=== PATIENT | male | born 1950 | race Caucasian/White ===

== ENCOUNTER 2025-01-29 15:24 | Inpatient (IN) | payer MEDICARE, MEDICAID ==
[~2025-01-29] VITALS: Ht 167.6 cm; Wt 65.8 kg
[~2025-01-29 15:24] MED LIST: OLAN10TA74 PO; TAMS0.4C94 PO
[2025-01-29 16:18] LABS: PLATELET COUNT (AUTO) 248 K/uL (150-450); RED BLOOD CELL COUNT(AUTO) 3.63 MIL/uL (4.50-5.90); RED CELL DISTRIBUTION WIDTH 16.1 % (11.5-14.5); WHITE BLOOD COUNT (AUTO) 7.3 K/uL (4.5-11.0)
[2025-01-29 16:23] LABS: CALCIUM, TOTAL 8.9 mg/dL (8.8-10.5); CREATININE 0.66 mg/dL (0.60-1.30); GLOMERULAR FILTR. RATE CALC > 60 mL/min (>60); GLUCOSE,RANDOM 95 mg/dL (70-110); SODIUM SERUM 139 mmol/L (136-145); UREA NITROGEN, BLOOD 29 mg/dL (7-18)
[2025-01-29 17:45] LABS: COVID AG,FIA SOURCE NASAL SWAB
[2025-01-29 18:10] LABS: SARS-COV2 (COVID) ANTIGEN,FIA Negative (Negative)
[2025-01-29 18:36] LABS: GLUCOMETER DEV NAME(LOC) ER.7; GLUCOSE,POINT OF CARE 86 MG/DL (70-110)
[2025-01-29] MEDS ORDERED: ZOLPIDEM TARTRATE 10 MG TABLET PO PRN (20:30)
[2025-01-29 23:52] LABS: APPEARANCE,URINE CLEAR (CLEAR); GLUCOSE, URINE (UA) NEGATIVE (NEGATIVE); LEUKOCYTE ESTERASE ,URINE NEGATIVE (NEGATIVE); NITRATE,URINE NEGATIVE (NEGATIVE); OCCULT BLOOD,URINE NEGATIVE (NEGATIVE); PH,URINE DRUG SCREEN 6.5 (5.0-8.0); SPECIFIC GRAVITIY, URINE 1.012 (1.003-1.030)
[2025-01-30 00:07] LABS: ALCOHOL, URINE DRUG SCREEN NEGATIVE (NEGATIVE); AMPHET/METH SCREEN,URINE NEGATIVE (NEGATIVE); BARBITURATE SCREEN, URINE NEGATIVE (NEGATIVE); CANNABINOID SCREEN,URINE NEGATIVE (NEGATIVE); COCAINE SCREEN,URINE NEGATIVE (NEGATIVE); METHADONE SCREEN, URINE NEGATIVE (NEGATIVE)
[2025-01-30 05:13] LABS: PLATELET COUNT (AUTO) 216 K/uL (150-450); RED BLOOD CELL COUNT(AUTO) 3.54 MIL/uL (4.50-5.90); RED CELL DISTRIBUTION WIDTH 16.0 % (11.5-14.5); WHITE BLOOD COUNT (AUTO) 6.4 K/uL (4.5-11.0)
[2025-01-30 05:33] LABS: ASPARTATE AMINOTRANSFERASE 18 U/L (15-37); CALCIUM, TOTAL 8.3 mg/dL (8.8-10.5); CHOL/HDL RATIO 2.5 (4.2-7.3); CREATININE 0.41 mg/dL (0.60-1.30); GLOMERULAR FILTR. RATE CALC > 60 mL/min (>60); GLUCOSE,RANDOM 88 mg/dL (70-110); LDL CHOL (CALC.) 49 mg/dL (0-130); SODIUM SERUM 140 mmol/L (136-145); TOTAL PROTEIN, SERUM 5.9 g/dL (6.4-8.2); UREA NITROGEN, BLOOD 20 mg/dL (7-18)
[2025-01-30] MEDS ORDERED: PETROLATUM,WHITE 28 GM JELLY TP PRN (17:30)
[2025-01-30] MEDS ORDERED: BACITRACIN 28 GM OINTMENT TP PRN (17:30)
[2025-01-30] MEDS ORDERED: ALBUTEROL SULFATE HFA 90 MCG/PUFF 8 GM INHALER IH PRN (17:30)
[2025-01-30] MEDS ORDERED: DOCUSATE SODIUM 100 MG CAPSULE PO PRN (17:30)
[2025-01-30] MEDS ORDERED: ONDANSETRON 4 MG TABLET PO PRN (17:30)
[2025-01-30] MEDS ORDERED: OMEPRAZOLE 20 MG CAPSULE PO PRN (17:30)
[2025-01-30] MEDS ORDERED: LOPERAMIDE HCL 2 MG CAPSULE PO PRN (17:30)
[2025-01-30] MEDS ORDERED: BENZOCAINE/MENTHOL [CEPACOL] LOZENGE PO PRN (17:30)
[2025-01-30] MEDS ORDERED: MAGNESIUM HYDROXIDE SUSPENSION 30 ML UDCUP PO PRN (17:30)
[2025-01-30 18:11] VITALS: BP 100/83; PULSE 86; RESP 18; TEMP 97.8; O2SAT 99
[2025-01-30] MEDS ORDERED: INFLUENZA VIRUS VACCINE TVS (6MO+) 2025-26/PF 45 MCG/0.5 ML SYRINGE IM. ONE (19:30)
[2025-01-30 20:05] VITALS: BP 123/82; PULSE 83; RESP 18
[2025-01-30] MEDS: TAMSULOSIN HCL 0.4 MG CAPSULE PO SCH (21:00)
[2025-01-30] MEDS: ATORVASTATIN CALCIUM 40 MG TABLET PO SCH (21:00)
[2025-01-30] MEDS: NITROFURANTOIN MONOHYD/M-CRYST 100 MG CAPSULE [MACROBID] PO SCH (21:00)
[2025-01-30] MEDS: LACTOBACILLUS ACIDOPHILUS/BULGARICUS TABLET PO SCH (21:00)
[2025-01-30] MEDS: POTASSIUM CHLORIDE 20 MEQ ER TABLET PO ONE (21:47)
[2025-01-31] MEDS: PANTOPRAZOLE SODIUM 40 MG DR TABLET PO SCH (06:40)
[2025-01-31] MEDS: MULTIVITAMINS WITH MINERALS, THERAPEUTIC TABLET PO SCH (09:00)
[2025-01-31] MEDS: FUROSEMIDE 40 MG TABLET PO SCH (09:00)
[2025-01-31] MEDS: FINASTERIDE 5 MG TABLET PO SCH (09:00)
[2025-01-31 10:45] VITALS: BP 123/99; PULSE 66; RESP 18; TEMP 97.3; O2SAT 97
[2025-01-31] MEDS: DIVALPROEX SODIUM 500 MG ER TABLET PO SCH (17:00)
[2025-01-31 20:24] VITALS: BP 115/72; PULSE 80; RESP 18; TEMP 97.9; O2SAT 98
[2025-02-01 09:37] VITALS: BP 111/61; PULSE 68; RESP 17; TEMP 98.4; O2SAT 95
[2025-02-01 20:10] VITALS: BP 115/95; PULSE 82; RESP 18; TEMP 98; O2SAT 97
[2025-02-01] MEDS ORDERED: DIVALPROEX SODIUM 500 MG ER TABLET PO SCH (21:00)
[2025-02-02 09:39] VITALS: BP 101/59; PULSE 80; RESP 18; TEMP 98.3; O2SAT 96
[2025-02-02 21:35] VITALS: BP 129/87; PULSE 84; RESP 19; TEMP 97.9; O2SAT 98
[2025-02-03 07:33] LABS: CREATININE 0.79 mg/dL (0.60-1.30); GLUCOSE,RANDOM 92 mg/dL (70-110); SODIUM SERUM 144 mmol/L (136-145); UREA NITROGEN, BLOOD 13 mg/dL (7-18)
[2025-02-03 07:34] LABS: CALCIUM, TOTAL 9.1 mg/dL (8.8-10.5); GLOMERULAR FILTR. RATE CALC > 60 mL/min (>60)
[2025-02-03 10:09] VITALS: RESP 18
[2025-02-03 20:29] VITALS: BP 138/70; PULSE 79; RESP 18; TEMP 98.5; O2SAT 100
[2025-02-03] MEDS ORDERED: OLANZapine 7.5 MG TABLET PO SCH (21:00)
[2025-02-04 11:34] VITALS: BP 114/70; PULSE 84; RESP 17; TEMP 97.7; O2SAT 97
[2025-02-04 22:19] VITALS: BP 123/76; PULSE 85; RESP 18; TEMP 98.1; O2SAT 97
[2025-02-05] MEDS: TERBINAFINE HCL 1% 30 GM CREAM TP SCH (06:38)
[2025-02-05 09:37] VITALS: BP 117/78; PULSE 92; RESP 18; TEMP 97.3; O2SAT 98
[2025-02-05 20:39] VITALS: BP 128/77; PULSE 100; RESP 18; TEMP 97.9; O2SAT 98
[2025-02-06 10:45] VITALS: BP 90/60; PULSE 88; RESP 18; TEMP 97.8; O2SAT 98
[2025-02-06 21:05] VITALS: BP 129/58; PULSE 74; RESP 18; TEMP 98.9; O2SAT 96
[2025-02-07 11:02] VITALS: BP 115/74; PULSE 74; RESP 18; TEMP 97.9; O2SAT 98
[2025-02-07 21:33] VITALS: BP 156/77; PULSE 93; RESP 18; TEMP 98; O2SAT 96
[2025-02-08 12:37] VITALS: BP 117/77; PULSE 87; RESP 18; TEMP 98.2; O2SAT 100
[2025-02-08 22:39] VITALS: BP 121/78; PULSE 85; RESP 18; TEMP 98; O2SAT 100
[2025-02-09 11:24] VITALS: BP 101/56; PULSE 83; RESP 17; TEMP 98.5; O2SAT 96
[2025-02-09 22:43] VITALS: BP 106/55; PULSE 69; RESP 18; TEMP 97.7; O2SAT 97
[2025-02-10 15:37] VITALS: BP 95/65; PULSE 67; RESP 18; TEMP 98; O2SAT 99
[2025-02-10 20:00] VITALS: BP 107/62; PULSE 75; RESP 18; TEMP 98.7; O2SAT 96
[2025-02-11 09:42] VITALS: BP 121/54; PULSE 85; RESP 18; TEMP 97.5; O2SAT 100
[2025-02-11 20:00] VITALS: BP 112/67; PULSE 78; RESP 18; TEMP 97.8; O2SAT 98
[2025-02-12 08:10] VITALS: BP 116/75; PULSE 74; RESP 16; TEMP 97.6; O2SAT 98
[2025-02-12 20:29] VITALS: BP 133/95; PULSE 75; RESP 18; TEMP 97.6; O2SAT 98
[2025-02-13 09:07] VITALS: BP 120/79; PULSE 65; RESP 18; TEMP 97.5; O2SAT 98
[2025-02-13 21:37] VITALS: BP 100/54; PULSE 85; RESP 18; TEMP 98.6; O2SAT 97
[2025-02-14 08:41] VITALS: RESP 18
[2025-02-14 20:03] VITALS: BP 119/59; PULSE 75; RESP 18; TEMP 98.1; O2SAT 97
[2025-02-15 08:06] VITALS: BP 100/56; PULSE 63; RESP 18; TEMP 97.5; O2SAT 96
[2025-02-15 20:00] VITALS: BP 133/70; PULSE 87; RESP 18; TEMP 97.2; O2SAT 98
[2025-02-16 08:02] VITALS: RESP 18
[2025-02-16 21:40] VITALS: BP 125/75; PULSE 59; RESP 18; TEMP 97.8; O2SAT 98
[2025-02-17 10:33] VITALS: BP 103/60; PULSE 87; RESP 19; TEMP 97.5; O2SAT 99
[2025-02-17 20:22] VITALS: BP 125/80; PULSE 77; RESP 18; TEMP 97.6; O2SAT 98
[2025-02-18 08:48] VITALS: BP 132/72; PULSE 70; RESP 19; TEMP 98.1; O2SAT 98
[2025-02-18 20:00] VITALS: BP 140/89; PULSE 80; RESP 18; TEMP 97.5; O2SAT 99
[2025-02-19 14:36] VITALS: BP 105/54; PULSE 71; RESP 18; TEMP 98.4
[2025-02-19 22:28] VITALS: BP 106/59; PULSE 63; RESP 19; TEMP 97.6; O2SAT 98
[2025-02-20 11:08] VITALS: BP 102/69; PULSE 80; RESP 18; TEMP 97.8; O2SAT 98
[2025-02-20 20:33] VITALS: BP 102/72; PULSE 70; RESP 18; TEMP 97.7; O2SAT 98
[2025-02-21 09:26] VITALS: BP 104/63; PULSE 74; RESP 16; TEMP 98.2; O2SAT 96
[2025-02-21] MEDS: LITHIUM CARBONATE 300 MG CAPSULE PO SCH (17:00)
[2025-02-21 20:15] VITALS: BP 125/70; PULSE 68; RESP 18; TEMP 98.2; O2SAT 100
[2025-02-22 08:10] VITALS: BP 118/67; PULSE 75; RESP 18; TEMP 97.8; O2SAT 99
[2025-02-22 21:00] VITALS: RESP 16
[2025-02-23 12:23] VITALS: BP 122/65; PULSE 84; RESP 18; TEMP 97.5
[2025-02-23 22:34] VITALS: BP 126/72; PULSE 89; RESP 17; TEMP 98.7
[2025-02-24 09:18] VITALS: BP 140/76; PULSE 61; RESP 17; TEMP 98.2; O2SAT 96
[2025-02-24 20:30] VITALS: BP 130/63; PULSE 69; RESP 19; TEMP 97.8; O2SAT 98
[2025-02-25 11:38] VITALS: RESP 16
[2025-02-25 20:00] VITALS: BP 106/66; PULSE 83; RESP 18; TEMP 97.1; O2SAT 98
[2025-02-26 08:00] VITALS: BP 106/64; PULSE 79; RESP 18; TEMP 97.5; O2SAT 97
[2025-02-26 20:41] VITALS: BP 112/60; PULSE 81; RESP 18; TEMP 97.5; O2SAT 99
[2025-02-27 08:00] VITALS: BP 113/67; PULSE 76; RESP 18; TEMP 97.3; O2SAT 100
[2025-02-27 21:31] VITALS: BP 105/70; PULSE 79; RESP 18; TEMP 97.7; O2SAT 99
[2025-02-28 13:30] VITALS: BP 125/72; PULSE 78; RESP 17; TEMP 98; O2SAT 98
[2025-02-28 22:28] VITALS: BP 105/55; PULSE 76; RESP 16; TEMP 97.8; O2SAT 99
[2025-03-01 09:00] VITALS: BP 132/106; PULSE 65; RESP 19; TEMP 98; O2SAT 99
[2025-03-01 22:40] VITALS: BP 96/64; PULSE 76; RESP 16; TEMP 98.2; O2SAT 100
[2025-03-02 10:01] VITALS: BP 102/64; PULSE 78; RESP 16; TEMP 97.9; O2SAT 98
[2025-03-02 21:09] VITALS: BP 94/62; PULSE 68; RESP 18; TEMP 98.8; O2SAT 100
[2025-03-03 14:15] VITALS: BP 122/70; PULSE 75; RESP 18; TEMP 97.5; O2SAT 99
[2025-03-03 20:15] VITALS: RESP 18
[2025-03-04 09:00] VITALS: BP 100/60; PULSE 78; RESP 18; TEMP 98.3; O2SAT 96
[2025-03-04 20:10] VITALS: BP 118/96; PULSE 85; RESP 18; TEMP 97.9; O2SAT 97
[2025-03-05 11:16] VITALS: BP 101/56; PULSE 76; RESP 17; TEMP 97.8; O2SAT 98
[2025-03-05 20:22] VITALS: BP 121/69; PULSE 85; RESP 18; TEMP 97.9; O2SAT 95
[2025-03-05] MEDS: ACETAMINOPHEN 325 MG TABLET PO PRN (21:08)
[2025-03-05 22:16] VITALS: RESP 18
[2025-03-05] MEDS: IBUPROFEN 600 MG TABLET PO PRN (22:16)
[2025-03-05 23:16] VITALS: RESP 18
[2025-03-06 08:00] VITALS: BP 113/61; PULSE 68; RESP 18; TEMP 97.9; O2SAT 100
[2025-03-06 21:19] VITALS: BP 129/88; PULSE 70; RESP 18; TEMP 97.6; O2SAT 98
[2025-03-07 08:44] VITALS: BP 101/60; PULSE 84; RESP 18; O2SAT 99
[2025-03-07 20:15] VITALS: BP 115/78; PULSE 70; RESP 18; TEMP 97; O2SAT 100
[2025-03-08 08:45] VITALS: BP 105/60; PULSE 78; RESP 18; TEMP 97.5; O2SAT 98
[2025-03-08 21:41] VITALS: BP 100/62; PULSE 61; RESP 18; TEMP 97.8; O2SAT 99
[2025-03-09 08:07] VITALS: BP 103/64; PULSE 77; RESP 18; TEMP 97; O2SAT 100
[2025-03-09 20:01] VITALS: BP 109/57; PULSE 66; RESP 18; TEMP 98.5; O2SAT 98
[2025-03-10] MEDS: MAG HYDROX/ALUMINUM HYD/SIMETH ES 30 ML SUSPENSION UDCUP PO PRN (05:04)
[2025-03-10 09:50] VITALS: BP 99/55; PULSE 79; RESP 16; TEMP 97.7; O2SAT 100
[2025-03-10 20:13] VITALS: BP 99/50; PULSE 71; RESP 16; TEMP 97.6; O2SAT 97
[2025-03-11 09:52] VITALS: BP 99/57; PULSE 61; RESP 18; TEMP 97.4; O2SAT 100
[2025-03-11 20:38] VITALS: BP 96/69; PULSE 75; RESP 18; TEMP 98; O2SAT 97
[2025-03-12 08:27] VITALS: BP 96/55; PULSE 57; RESP 16; TEMP 97.5; O2SAT 98
[2025-03-12 21:37] VITALS: BP 107/56; PULSE 66; RESP 18; TEMP 97.8; O2SAT 99
[2025-03-13 10:34] VITALS: BP 101/71; PULSE 82; RESP 18; TEMP 97.7; O2SAT 95
[2025-03-13 20:12] VITALS: BP 100/64; PULSE 69; RESP 18; TEMP 97.4; O2SAT 97
[2025-03-14 08:54] VITALS: BP 112/65; PULSE 84; RESP 18; TEMP 98.2; O2SAT 98
[2025-03-14 20:06] VITALS: BP 137/89; PULSE 92; RESP 18; TEMP 97.4; O2SAT 97
[2025-03-15 09:47] VITALS: BP 112/68; PULSE 80; RESP 17; TEMP 97.7; O2SAT 97
[2025-03-15 16:29] VITALS: BP 113/72; PULSE 85; RESP 18; O2SAT 98
[2025-03-15 17:28] VITALS: RESP 16
[2025-03-15 20:50] VITALS: BP 122/74; PULSE 82; RESP 18; TEMP 98.1; O2SAT 98
[2025-03-16 09:42] VITALS: BP 93/52; PULSE 64; RESP 18; TEMP 97.8; O2SAT 96
[2025-03-16 22:34] VITALS: BP 127/71; PULSE 94; RESP 18; TEMP 97.6; O2SAT 97
[2025-03-17 02:17] VITALS: BP 132/68; PULSE 87; RESP 18; TEMP 97; O2SAT 98
[2025-03-17 10:29] VITALS: BP 102/63; PULSE 58; RESP 18; TEMP 97.5; O2SAT 100
[2025-03-17 20:14] VITALS: BP 112/67; PULSE 84; RESP 18; TEMP 97.9; O2SAT 98
[2025-03-18 10:36] VITALS: BP 115/60; PULSE 75; RESP 16; TEMP 98; O2SAT 97
[2025-03-18 22:44] VITALS: BP 111/71; PULSE 96; RESP 18; TEMP 97.7; O2SAT 100
[2025-03-19 08:10] VITALS: BP 105/75; PULSE 69; RESP 18; TEMP 97.5; O2SAT 99
[2025-03-19] MEDS ORDERED: PANT-31 PO (11:24)
[2025-03-19] MEDS ORDERED: TERB25PO MC (11:24)
[2025-03-19] MEDS ORDERED: FINA-27 PO (11:24)
[2025-03-19] MEDS ORDERED: RISP-31 PO (11:24)
[2025-03-19] MEDS ORDERED: ATOR40TA28 PO (11:24)
[2025-03-19] MEDS ORDERED: MULT-1303 PO (11:24)
[2025-03-19] MEDS ORDERED: ACID1TAB8 PO (11:24)
[2025-03-19] MEDS ORDERED: LITH300C3 PO (11:24)
[2025-03-19] MEDS ORDERED: FURO40TA6 PO (11:24)
== END 2025-03-19 16:00 | DRG 885 ==
LOC: EMS 15:26 → 3EX 01-30 16:14
PROVIDERS: ADMIT Psychiatry & Neurology Psychiatry; ATTEND Psychiatry & Neurology Psychiatry
DX: F20.9 Schizophrenia, unspecified (principal); E11.9 Type 2 diabetes mellitus without complications; N39.0 Urinary tract infection, site not specified; I10 Essential (primary) hypertension; J44.9 Chronic obstructive pulmonary disease, unspecified; Z20.822 Contact with and (suspected) exposure to COVID-19; N40.0 Benign prostatic hyperplasia without lower urinary tract symptoms; F41.9 Anxiety disorder, unspecified; G47.00 Insomnia, unspecified; K21.9 Gastro-esophageal reflux disease without esophagitis; K59.00 Constipation, unspecified; G89.29 Other chronic pain; Z86.73 Personal history of transient ischemic attack (TIA), and cerebral infarction without residual deficits; Z79.899 Other long term (current) drug therapy
CPT/HCPCS: 80048; 80053; 80061; 80178; 80307; 81003; 82962; 83036; 84436; 84439; 85025; 87081; 97112; 97116; 97162; 97166; 97530; 99285; G0378; G0480; J1630